=== PATIENT | male | born 1940 | race Caucasian/White ===

== ENCOUNTER 2019-04-04 02:16 | Emergency (ER) | payer OTHER, MEDICAID ==
[~2019-04-04] VITALS: Ht 182.9 cm; Wt 88.9 kg
[2019-04-04 02:20] VITALS: Ht 182.9 cm; Wt 88.9 kg
[2019-04-04 05:08] VITALS: BP 129/72
== END 2019-04-04 05:08 | disposition home or self-care (01) ==
LOC: ED 02:16
DX: S00.211A Abrasion of right eyelid and periocular area, initial encounter (principal); W18.39XA Other fall on same level, initial encounter; Y93.89 Activity, other specified; Y92.89 Other specified places as the place of occurrence of the external cause; Y99.8 Other external cause status